=== PATIENT | male | born 1955 | race Caucasian/White ===

== ENCOUNTER 2022-04-25 14:02 | Inpatient (IN) | payer MEDICARE, OTHER, SELFPAY ==
--- NOTE | ~2022-04-25 | XR_ITS ---
EXAMINATION: XR hand LT min 3V DATE: 04/25/2022 14:33 INDICATION: Left hand injury and swelling and erythema. TECHNIQUE: 3 views of left hand were obtained. COMPARISON: None. FINDINGS: Bone alignment is normal. No fracture. There is mild osteoarthritis of triscaphe joint, fir st carpometacarpal joint, first-third metacarpophalangeal joints, first interphalangeal joint, and se cond and third distal interphalangeal joints. IMPRESSION: 1. Mild polyarticular osteoarthritis. Reviewed, dictated and finalized at location A.
[2022-04-25 14:13] VITALS: BP 144/76; PULSE 104; RESP 18; TEMP 36.8; O2SAT 94
[2022-04-25 15:08] VITALS: BP 141/86; PULSE 99; RESP 18; TEMP 37.2; O2SAT 94
[2022-04-25 15:44] LABS: Basophils Absolute Auto 0.1 K/mm3 (0.0-0.1); Basophils Percent Auto 0.4 % (0.2-1.2); Eosinophils Percent Auto 0.2 % (0-4.4); Hemoglobin 15.1 g/dL (14.0-18.0); Immature Granulocyte Absolute 0.08 K/mm3 (0.00-0.031); Immature Granulocyte Percent A 0.6 % (0-0.5); Lymphocytes Percent Auto 6.1 % (18.3-44.2); Mean Corpuscular HGB Conc 35.1 g/dl (32-36); Mean Corpuscular Hemoglobin 29.4 pg (26-34); Mean Corpuscular Volume 83.8 fl (80-100); Mean Platelet Volume 8.6 fl (7.4-10.4); Monocytes Absolute Auto 0.9 K/mm3 (0.1-0.6); Monocytes Percent Auto 6.8 % (2.6-8.5); Neutrophils Absolute Auto 11.2 K/mm3 (1.3-6.7); Neutrophils Percent Auto 85.9 % (45.5-73.1); Platelet Count Result 120 k/mm3 (150-375); Red Blood Count 5.13 M/mm3 (4.6-6.20); Red Cell Distribution Width 14.6 % (11.5-14.5)
[2022-04-25 15:54] LABS: Anion Gap 8 mmol/L (8-16); Blood Urea Nitrogen 12 mg/dL (9-20); Calcium 9.3 mg/dL (8.4-10.2); Carbon Dioxide 32 mmol/L (22-30); Chloride 90 mmol/L (98-107); Estimated CRCL calculation 110 ml/min; Estimated Glomerular Filt Rate > 60; Glucose 206 mg/dL (65-110); Lactic Acid Reflex 1.5 mmol/L (0.7-2.0); Potassium 3.4 mmol/L (3.4-5.0); Sodium 130 mmol/L (137-145)
--- NOTE | 2022-04-25 16:12 | ED.SKABFB ---
HPI - Skin/Abscess/Foreign Bdy General Chief complaint: Skin/Abscess/Foreign Body Stated complaint: finger injury, infected Time Seen by Provider: 04/25/22 15:04 History of Present Illness HPI narrative: Patient is a 66-year-old male who presents ER with left middle finger infection. Patient reports that 4 days ago he was hammering a nail when he struck his third digit at the DIP. He developed a bruise over the area. The next day it became more sore and he went to a urgent care. He was prescribed mupirocin ointment for possible development of infection. Since then his entire fingers blistered up. He has developed redness over the dorsum of his hand and streaking up towards his elbow. He has been having subjective fevers and chills. No palmar pain. There is erythema of the digit moving into the MCP area of the palm. Patient has had no drainage but can feel fluid within the blister. Related Data Home Medications Medication Instructions Recorded Confirmed albuterol sulfate 90 mcg/actuation inhalation 10/07/19 03/06/21 aerosol inhaler (ProAir HFA) balsalazide 750 mg capsule 750 mg PO 10/07/19 03/06/21 (Colazal) budesonide-formoterol HFA 160 inhalation 10/07/19 03/06/21 mcg-4.5 mcg/actuation aerosol inhaler (Symbicort) citalopram 40 mg tablet (Celexa) 40 mg 10/07/19 03/06/21 docusate sodium 100 mg capsule PO 10/07/19 03/06/21 ergocalciferol (vitamin D2) 1,250 50,000 unit 10/07/19 03/06/21 mcg (50,000 unit) capsule hydrocodone 10 mg-acetaminophen tablet 10/07/19 03/06/21 325 mg tablet metformin 500 mg tablet,extended mg PO 10/07/19 03/06/21 release 24 hr (Glucophage XR) metolazone 5 mg tablet 5 mg 10/07/19 03/06/21 omega-3s 300 uq-zzz-kkl-other cap PO 10/07/19 03/06/21 [id number] oil 1,000 mg capsule ([place]-3 Fish Oil) potassium chloride 20 mEq meq PO 10/07/19 03/06/21 tablet,extended release(part/cryst) (Klor-Con M) rosuvastatin 10 mg tablet (Crestor) 10 mg 10/07/19 03/06/21 tamsulosin 0.4 mg capsule (Flomax) mg PO 10/07/19 03/06/21 tiotropium bromide 2.5 inhalation 10/07/19 03/06/21 mcg/actuation mist for inhalation (Spiriva Respimat) potassium chloride 20 mEq 20 meq PO TID 12/06/19 03/06/21 tablet,extended release sildenafil 100 mg tablet 100 mg PO DAILY PRN 12/06/19 03/06/21 Allergies Allergy/AdvReac Type Severity Reaction Status Date / Time No Known Allergies Allergy Unknown Verified 03/06/21 11:32 Review of Systems Review of Systems: All systems reviewed & are unremarkable except as noted in HPI and below Constitutional: Constitutional: Reports chills, Reports fever(s) and Denies weakness Gastrointestinal: Gastrointestinal: Denies abdominal pain, Denies nausea and Denies vomiting Musculoskeletal: Musculoskeletal: Denies myalgias, Reports arthralgias and Reports joint swelling Integumentary/Breasts: Skin/Breast: Reports erythema and Denies rash Comments: Bullae of left middle finger. Neurologic: Denies focal weakness and Denies numbness PMFSH Past Medical History Medical History (Updated 04/25/22 @ 16:33 by Jasper Gant MD) Arthritis BPH (benign prostatic hyperplasia) Brain tumor Chronic back pain Depression Dyslipidemia Emphysema of lung GERD (gastroesophageal reflux disease) Hemorrhoids Hypercholesteremia Hypertension Non-insulin dependent type 2 diabetes mellitus Sleep apnea Surgical History Surgical History H/O inguinal hernia repair History of orthopedic surgery Right knee x2, left ankle x3 Family History Family History Sibling Family history of emphysema Family history of heart disease in male family member before age 55 Family history of obesity Family history of sleep apnea Mother Family history of obesity Other Diabetes mellitus Social History Social History
[2022-04-25 17:59] VITALS: BP 147/81; PULSE 78; RESP 16; O2SAT 98
--- NOTE | 2022-04-25 18:29 | ADMGEN ---
This patient, Celestino Rivas, was admitted to [address] [place] [address] Room 300-01. Patient/family oriented to hospital policies and general routines including ID bracelet, bed and alarms, visiting hours, pain management, procedures, bathroom and other care routines, personal items, smoking policy, room service/diet, and visiting hours. Information on how to activate the Rapid Response Team has been discussed. Patient/Family are encouraged to report perceived risks to care and to ask questions if they do not understand what they are told or what they should do.
[2022-04-25 18:41] VITALS: BMI 32.3
--- NOTE | 2022-04-25 19:30 | PM.IMHP ---
H&P: HPI History of Present Illness Date/Time: 04/25/22 19:30 Chief Complaint: Left middle finger wound. Narrative: This is a very pleasant 66-year-old male with diabetes, hypertension, dyslipidemia, and other comorbidities who presented to the emergency department from home for evaluation of a left middle finger wound. Four days ago he was trying to hammer a nail into a piece of wood when he missed the nail and struck his left middle finger over the DIP joint. Almost immediately he developed swelling and formed a blood blister within hours. The following day the blister had extended and finger was much more sore. He was seen at urgent care at which time he was given a tetanus shot and he was told to clean the wound and apply mupirocin ointment. Despite taking meticulous care of the wound, the blistering has spread to encompass nearly the entire dorsal aspect of that finger and it has been draining small amounts of pus and serosanguineous fluid. He has now developed swelling and redness to the dorsum of the hand which is now streaking up the arm and he came in today for evaluation. He is now status post I&D in the emergency department and wound culture has been obtained. The patient is now being admitted for IV antibiotics. He reports a pretty constant, throbbing pain in that finger, worse when trying to bend that finger or those adjacent. He has not had a fever but he has just not been feeling well the last couple of days with generalized malaise, fatigue, and nausea. No numbness or tingling of the finger. No known history of multidrug resistant organisms. Review of Systems Review of Systems: Twelve systems were reviewed. He has lost quite a bit of weight since changing his diet and starting an exercise program at the [facility]. He believes his diabetes is well controlled. No blurry vision, polydipsia, or polyuria. He has not had a fever. Some nausea but no vomiting. Appetite has been a bit diminished. Except as documented, all other systems were reviewed and are negative. [facility] Past Medical History Medical History (Updated 04/25/22 @ 23:42 by Leah North PA-C) Arthritis Benign prostatic hyperplasia Chronic back pain Depression Dyslipidemia Emphysema of lung Gastroesophageal reflux disease Hemorrhoids Hypercholesteremia Hypertension Non-insulin dependent type 2 diabetes mellitus Obstructive sleep apnea on CPAP Sleep apnea Surgical History Surgical History (Updated 04/25/22 @ 23:38 by Leah North PA-C) History of inguinal hernia repair History of orthopedic surgery Right knee x2, left ankle x3 Family History Family History Sibling Family history of emphysema Family history of heart disease in male family member before age 55 Family history of obesity Family history of sleep apnea Mother Family history of obesity Other Diabetes mellitus Social History Social History (Updated 04/25/22 @ 23:42 by Leah North PA-C) Social History: Surrogate decision maker: Jarett Rivera, mother. Code status: Full code. Smoking packs per day: 1 Smoking cigarettes per day: 20.0 Years smoked: 10 Smoking pack-years: 10.00 Smoking status: Former smoker Tobacco type: cigarettes Second hand tobacco smoke exposure: No Smoking end date: 11/17/05 Alcohol intake: never Substance use: current Other substance usage details: Medical marijuana. Living arrangements: alone Occupation/Education: retired Spiritual care concerns: No Meds Home Medications and Allergies Home Medications Medication Instructions Recorded Confirmed Type albuterol sulfate 90 mcg/actuation inhalation 10/07/19 03/06/21 History aerosol inhaler (ProAir HFA) balsalazide 750 mg capsule 750 mg PO 10/07/19 03/06/21 History (Colazal) budesonide-formoterol HFA 160 inhalation 10/07/19 03/06/21 History mcg-4.5 mcg/actuation aerosol inhaler (Symbico
[2022-04-25] MEDS: HYDROcodone/acetaminophen (*CRX) 5-325 MG TABLET 1 TAB PO (21:37)
[2022-04-25 21:40] VITALS: BP 125/68; PULSE 91; RESP 18; TEMP 37; O2SAT 96
[2022-04-26] MEDS: SODIUM CHLORIDE 0.9% IV 1,000 ML 100 ML IV CONT (00:27)
[2022-04-26 01:45] VITALS: PULSE 83; RESP 19; O2SAT 95
[2022-04-26 05:45] VITALS: BP 134/75; PULSE 73; RESP 20; TEMP 37; O2SAT 95
--- NOTE | 2022-04-26 06:29 | PC.NURSE ---
Place call to DR Trimble exchange for consult, waiting on return call.
[2022-04-26 07:59] LABS: Glucose Point of Care 271 mg/dl (65-105)
[2022-04-26] MEDS: MORPHINE SULFATE (*CRX) 2 MG/ML INJ IV PUSH ×2 (08:47→17:26)
[2022-04-26] MEDS: INSULIN ASPART (*BKC) 100 UNITS/ML SUB-Q (08:49)
[2022-04-26 09:45] LABS: Hematocrit 39.5 % (42.0-52.0); Hemoglobin 13.9 g/dL (14.0-18.0); Mean Corpuscular HGB Conc 35.2 g/dl (32-36); Mean Corpuscular Hemoglobin 29.4 pg (26-34); Mean Corpuscular Volume 83.7 fl (80-100); Mean Platelet Volume 8.9 fl (7.4-10.4); Platelet Count Result 110 k/mm3 (150-375); Red Blood Count 4.72 M/mm3 (4.6-6.20); Red Cell Distribution Width 14.6 % (11.5-14.5); White Blood Count 8.5 K/mm3 (4.5-10.0)
[2022-04-26 10:02] LABS: Anion Gap 9 mmol/L (8-16); Blood Urea Nitrogen 12 mg/dL (9-20); Calcium 8.2 mg/dL (8.4-10.2); Carbon Dioxide 30 mmol/L (22-30); Chloride 90 mmol/L (98-107); Estimated CRCL calculation 182 ml/min; Estimated Glomerular Filt Rate > 60; Glucose 229 mg/dL (65-110); Magnesium 1.5 mg/dL (1.6-2.3); Sodium 129 mmol/L (137-145)
[2022-04-26 10:09] LABS: CRP 14.7 mg/dL (<1.0)
[2022-04-26 10:26] LABS: Potassium 2.8 mmol/L (3.4-5.0)
[2022-04-26 11:18] LABS: Hemoglobin A1C 8.2 % (<5.7)
[2022-04-26] MEDS: MAGNESIUM SULFATE 3GM/D5W100ML 3 GM/100 ML BAG IVPB (11:20)
[2022-04-26 11:49] LABS: Glucose Point of Care 180 mg/dl (65-105)
--- NOTE | 2022-04-26 12:58 | WPDCN ---
Assessment and Plan Assessment and plan (1) Non-insulin dependent type 2 diabetes mellitus: Code(s): E11.9 - Type 2 diabetes mellitus without complications Status: Acute Assessment and Plan: Care by others. (2) Cellulitis of left middle finger: Code(s): L03.012 - Cellulitis of left finger Status: Acute Assessment and Plan: Will debride purulent bulla at the bedside to promote topical care with Silver gel. Continue Imipenem and Vanc pending cx final. HPI Data of Consult Date/Time: 04/26/22 12:58 Requesting Physician: Randee Longo PA-C Primary Care Provider: Evonne Capps MD Consult Narrative Narrative: Celestino Rivas is a 66 year old male admitted with lymphangitis of L upper extremity related to cellulitis from a hammer blow to his left middle finger 5 days ago. On admission there was elevated WBC, normal x-ray, lymphangitis. A purulent draining bulla has developed. Cx prilim. shows G pos. cocci. PMFSH Past Medical History Medical History (Updated 04/25/22 @ 23:42 by Leah North PA-C) Arthritis Benign prostatic hyperplasia Chronic back pain Depression Dyslipidemia Emphysema of lung Gastroesophageal reflux disease Hemorrhoids Hypercholesteremia Hypertension Non-insulin dependent type 2 diabetes mellitus Obstructive sleep apnea on CPAP Sleep apnea Surgical History Surgical History (Updated 04/25/22 @ 23:38 by Leah North PA-C) History of inguinal hernia repair History of orthopedic surgery Right knee x2, left ankle x3 Family History Family History Sibling Family history of emphysema Family history of heart disease in male family member before age 55 Family history of obesity Family history of sleep apnea Mother Family history of obesity Other Diabetes mellitus Social History Social History (Updated 04/25/22 @ 23:42 by Leah North PA-C) Social History: Surrogate decision maker: Jarett Rivera, mother. Code status: Full code. Smoking packs per day: 1 Smoking cigarettes per day: 20.0 Years smoked: 10 Smoking pack-years: 10.00 Smoking status: Former smoker Tobacco type: cigarettes Second hand tobacco smoke exposure: No Smoking end date: 11/17/05 Alcohol intake: never Substance use: current Other substance usage details: Medical marijuana. Living arrangements: alone Occupation/Education: retired Spiritual care concerns: No Meds Home Medications and Allergies Home Medications Medication Instructions Recorded Confirmed Type albuterol sulfate 90 mcg/actuation 2 puff inhalation DAILY 10/07/19 04/26/22 History aerosol inhaler (ProAir HFA) balsalazide 750 mg capsule 750 mg PO BID 10/07/19 04/26/22 History (Colazal) budesonide-formoterol HFA 160 2 puff inhalation BID 10/07/19 04/26/22 History mcg-4.5 mcg/actuation aerosol inhaler (Symbicort) citalopram 40 mg tablet (Celexa) 40 mg HS 10/07/19 04/26/22 History docusate sodium 100 mg capsule 100 mg PO HS 10/07/19 04/26/22 History ergocalciferol (vitamin D2) 1,250 50,000 unit DAILY 10/07/19 04/26/22 History mcg (50,000 unit) capsule hydrocodone 10 mg-acetaminophen 10 - 325 tablet QID PRN Pain 10/07/19 04/26/22 History 325 mg tablet metolazone 5 mg tablet 5 mg DAILY 10/07/19 04/26/22 History omega-3s 300 tn-atu-bwz-other 300 - 1,000 cap PO DAILY 10/07/19 04/26/22 History [id number] oil 1,000 mg capsule ([place]-3 Fish Oil) potassium chloride 20 mEq 20 meq PO BID 10/07/19 04/26/22 History tablet,extended release(part/cryst) (Klor-Con M) rosuvastatin 10 mg tablet (Crestor) 10 mg DAILY 10/07/19 04/26/22 History tamsulosin 0.4 mg capsule (Flomax) 0.4 mg PO DAILY 10/07/19 04/26/22 History tiotropium bromide 2.5 2.5 mcg inhalation DAILY 10/07/19 04/26/22 History mcg/actuation mist for inhalation (Spiriva Respimat) potassium
--- NOTE | 2022-04-26 13:08 | W.PM.PROC2 ---
Procedure Note - Detailed Date of Procedure 04/26/22 Pre-op Diagnosis Finger Infection Post-op Diagnosis Same Procedure Performed scissor removal of 5 cm septic bulla of left middle finger at bedside. Surgeon Monroe Jimenez MD Anesthesia None Findings macerating superficial cellulitis of left dorsal middle finger. Description of Procedure Pt comfortable as bulla removed by scissors the length of the dorsal left middle finger draining purulence. Dressed with Betadine and gauze. Urine Output 310
[2022-04-26] MEDS: POTASSIUM CHLORIDE 20 MEQ TABLET PO (13:36)
[2022-04-26] MEDS: POTASSIUM CHLORIDE INJ 40 MEQ in SODIUM CHLORIDE 0.9% IV 500 ML 130 MEQ IVPB (13:37)
[2022-04-26 14:00] VITALS: BP 125/80; PULSE 74; RESP 16; TEMP 36.5; O2SAT 97
[2022-04-26 14:04] LABS: Sodium 129 mmol/L (137-145)
--- NOTE | 2022-04-26 14:47 | PM.IMPN ---
Progress Note: A&P Assessment and Plan (1) Cellulitis of left middle finger: Code(s): L03.012 - Cellulitis of left finger Status: Acute Assessment and Plan: Patient presented with left middle finger pain following a hammer injury to his left D IP S/p I&D performed in the emergency department Wound culture is pending. Preliminary results revealed Gram-positive cocci in chains Continue vancomycin and Primaxin Appreciate Plastic surgery consultation He is s/p says the removal of purulent bulla performed by Dr. Jimenez today at the bedside Continue with local wound care Analgesics available as needed No evidence of systemic infection. No fevers. Leukocytosis has resolved. (2) Abscess of left middle finger: Code(s): L02.512 - Cutaneous abscess of left hand Status: Acute Assessment and Plan: See above (3) Cellulitis of left hand: Code(s): L03.114 - Cellulitis of left upper limb Status: Acute Assessment and Plan: Patient with surrounding cellulitis of the dorsum of the left hand and wrist. Continue IV antibiotics Monitor the area closely (4) Non-insulin dependent type 2 diabetes mellitus: Code(s): E11.9 - Type 2 diabetes mellitus without complications Status: Acute Assessment and Plan: A1c is 8.2. Blood sugars have been slightly elevated this admission Continue Accu-Cheks, sliding scale insulin, hypoglycemic protocol Monitor glucose trends adjust insulin regimen as needed (5) Hypertension: Code(s): I10 - Essential (primary) hypertension Status: Acute Assessment and Plan: Blood pressures reviewed and have been stable. Last BP 134/75 Hold home metolazone given hyponatremia Monitor blood pressure trends (6) Mild dehydration: Code(s): E86.0 - Dehydration Status: Acute Assessment and Plan: Resolved Patient has been adequately rehydrated is tolerating p.o. intake (7) Obstructive sleep apnea on CPAP: Code(s): G47.33 - Obstructive sleep apnea (adult) (pediatric); Z99.89 - Dependence on other enabling machines and devices Status: Acute Assessment and Plan: Continue home CPAP (8) Electrolyte abnormality: Code(s): E87.8 - Other disorders of electrolyte and fluid balance, not elsewhere classified Status: Acute Assessment and Plan: Hypokalemia: Potassium 2.8 this morning. Replace potassium and continue to monitor closely Hypomagnesemia: Magnesium 1.5. Continue with magnesium supplementation and repeat magnesium tomorrow Hyponatremia: Sodium 129. Etiology for this unclear, may be SIADH due to pain. Recheck this afternoon with sodium unchanged 129. Will evaluate urine electrolytes Subjective Date/time seen: 04/26/22 14:47 Interval history: Date of service: 04/26/2022 Celestino Rivas is a 66-year-old with a history of hypertension type 2 diabetes mellitus LYNN on CPAP back pain, and dyslipidemia is seen in follow-up for left middle finger infection. He is feeling pretty well at this time. He does endorse pain in his left middle finger that he states is a ?150 out of 10? He tolerated scissor removal of bulla at the bedside today. He states the dorsum of his hand and wrist feels warm and slightly tender when she touches it. He denies streaking up the arm. He denies fevers or chills, no nausea or vomiting. He states he got nauseous this morning while receiving IV medications but has not had any episodes of emesis in his nausea has resolved. He denies diarrhea. He complains of chronic back and neck pain. He denies shortness breath, cough, chest pain. Review of Systems Review of Systems: All systems reviewed & are unremarkable except as noted in HPI and below Exam Narrative: General: Well-nourished, well-appearing 66-year-old male, sitting up in bed, comfortable, NARD Neuro: awake, alert and oriented x4, speech clear, no
[2022-04-26 16:45] LABS: Glucose Point of Care 156 mg/dl (65-105)
[2022-04-26] MEDS: POTASSIUM CHLORIDE 20 MEQ TABLET.ER PO (17:26)
[2022-04-26 18:02] LABS: Sodium 130 mmol/L (137-145)
[2022-04-26 20:00] VITALS: PULSE 82; RESP 21; O2SAT 96
[2022-04-26] MEDS: DOCUSATE SODIUM 100 MG CAPSULE PO (20:46)
[2022-04-26] MEDS: CITALOPRAM HYDROBROMIDE 20 MG TABLET 40 MG PO (20:46)
[2022-04-26] MEDS: HYDROcodone/acetaminophen (*CRX) 5-325 MG TABLET 1 TAB PO (20:46)
[2022-04-26 21:43] VITALS: BP 119/69; PULSE 80; RESP 20; TEMP 37.1; O2SAT 97
[2022-04-26 21:51] LABS: Glucose Point of Care 207 mg/dl (65-105)
[2022-04-26] MEDS: WATER FOR IRRIGATION, STERILE 1,000 ML BOTTLE 1000 ML (22:00)
[2022-04-26 23:30] VITALS: PULSE 82; RESP 21; O2SAT 96
[2022-04-26] MEDS: FLUTICASONE/SALMETEROL 115-21 MCG INHALER 1 PUFF 2 PUFF INHALATION (23:30)
[2022-04-27] VITALS (7 sets, daily range): BP systolic 122–135; BP diastolic 58–79; PULSE 62–88; RESP 15–20; TEMP 36.1–36.8; O2SAT 94–98
[2022-04-27 01:19] LABS: Creatinine Urine 137.8 mg/dL
[2022-04-27 01:34] LABS: Sodium Urine Random 70 meq/L
[2022-04-27 06:34] LABS: Hematocrit 37.7 % (42.0-52.0); Hemoglobin 13.5 g/dL (14.0-18.0); Immature Platelet Fraction Pct 2.4 % (0.9-11.2); Mean Corpuscular HGB Conc 35.8 g/dl (32-36); Mean Corpuscular Hemoglobin 29.8 pg (26-34); Mean Corpuscular Volume 83.2 fl (80-100); Mean Platelet Volume 8.8 fl (7.4-10.4); Platelet Count Result 127 k/mm3 (150-375); Red Blood Count 4.53 M/mm3 (4.6-6.20); Red Cell Distribution Width 14.6 % (11.5-14.5); White Blood Count 5.5 K/mm3 (4.5-10.0)
[2022-04-27 06:46] LABS: Anion Gap 5 mmol/L (8-16); Blood Urea Nitrogen 12 mg/dL (9-20); CRP 5.6 mg/dL (<1.0); Carbon Dioxide 30 mmol/L (22-30); Chloride 98 mmol/L (98-107); Estimated CRCL calculation 149 ml/min; Estimated Glomerular Filt Rate > 60; Glucose 176 mg/dL (65-110); Magnesium 1.9 mg/dL (1.6-2.3); Sodium 133 mmol/L (137-145)
[2022-04-27 06:49] LABS: Vancomycin Trough 7.7 ug/mL (10.0-20.0)
[2022-04-27 07:35] LABS: Glucose Point of Care 208 mg/dl (65-105)
[2022-04-27] MEDS: INSULIN ASPART (*BKC) 100 UNITS/ML SUB-Q ×4 (08:30→16:54)
[2022-04-27] MEDS: POTASSIUM CHLORIDE 20 MEQ TABLET.ER PO ×2 (08:34→16:53)
[2022-04-27] MEDS: SODIUM CHLORIDE 0.9% IV 1,000 ML 100 ML IV CONT (08:35)
[2022-04-27] MEDS: HYDROcodone/acetaminophen (*CRX) 5-325 MG TABLET 1 TAB PO (08:45)
[2022-04-27] MEDS: ALBUTEROL SULFATE (*SP) AEROSOL 1 PUFF 2 PUFF INHALATION (08:53)
[2022-04-27] MEDS: FLUTICASONE/SALMETEROL 115-21 MCG INHALER 1 PUFF 2 PUFF INHALATION ×2 (08:53→19:32)
--- NOTE | 2022-04-27 10:12 | WPDPN ---
Progress Note: A&P Assessment and Plan (1) Cellulitis of left hand: Code(s): L03.114 - Cellulitis of left upper limb Status: Acute Assessment and Plan: Infection markedly improved. Culture specifics pending on the G pos cocci. (2) Non-insulin dependent type 2 diabetes mellitus: Code(s): E11.9 - Type 2 diabetes mellitus without complications Status: Acute Assessment and Plan: Care by others. (3) Obesity: Code(s): E66.9 - Obesity, unspecified Status: Acute Assessment and Plan: Care by others. Plan Can be discharged on Silver gel as ordered, and appropriate oral antibiotics when cleared by Hospitalists. F/U with Dr. Jimenez in a week on Friday. Subjective Date/time seen: 04/27/22 10:12 Hand feels better and is less red . Finger moves pretty well. Exam Narrative: Dressing changed. Lymphangitis is resolved. No purulence. Extends well, total active flexion about 50%. Objective Data Vital Signs Vital Signs: Vital Signs - 24 hr 04/26/22 14:00 04/26/22 21:43 04/26/22 23:30 Temperature 97.7 F 98.7 F Pulse Rate 74 80 82 Respiratory Rate 16 20 21 H Blood Pressure 125/80 119/69 Pulse Oximetry 97 97 96 Oxygen Delivery CPAP Fraction of Inspired Oxygen 04/26/22 23:30 04/26/22 20:00 04/27/22 03:39 Temperature Pulse Rate 82 88 Respiratory Rate 21 H 15 Blood Pressure Pulse Oximetry 96 96 94 Oxygen Delivery CPAP CPAP CPAP Fraction of Inspired Oxygen 21 21 04/27/22 05:21 04/27/22 08:55 Temperature 98.3 F Pulse Rate 68 Respiratory Rate 20 Blood Pressure 122/64 Pulse Oximetry 98 97 Oxygen Delivery Room Air Fraction of Inspired Oxygen Intake/Output Intake/Output: Intake & Output 04/24/22 04/25/22 04/26/22 04/27/22 23:59 23:59 23:59 23:59 Intake Total 600 4300 810 Output Total 1695 700 Balance 600 2605 110 Meds/Results Medications: Active Medications Generic Name Dose Route Start Last Admin Trade Name Freq PRN Reason Stop Dose Admin Acetaminophen 650 mg 04/25/22 16:12 Acetaminophen 325 Mg Tablet PO Q4H PRN Mild Pain (1-3) or Fever Hydrocodone Bitart/Acetaminophen 1 tab 04/25/22 16:12 04/27/22 08:45 Hydrocodone/Acetaminophen (*Crx) 5-325 Mg Tablet PO 1 tab Q4H PRN Administration Pain Rated 4-6 Albuterol 2 puff 04/27/22 09:00 04/27/22 08:53 Albuterol Sulfate (*Sp) Aerosol 1 Puff INHALATION 2 puff DAILY NITESH Administration Citalopram Hydrobromide 40 mg 04/26/22 21:00 04/26/22 20:46 Citalopram Hydrobromide 20 Mg Tablet PO 40 mg HS NITESH Administration Dextrose 12.5 gm 04/25/22 23:46 Dextrose 50% 25 Gm/50 Ml Syringe IV PUSH PRN PRN Hypoglycemia Protocol Docusate Sodium 100 mg 04/26/22 21:00 04/26/22 20:46 Docusate Sodium 100 Mg Capsule PO 100 mg HS NITESH Administration Glucagon 1 mg 04/25/22 23:46 Glucagon For Inj 1 Mg Vial IM PRN PRN Hypoglycemia Protocol Glucose 15 gm 04/25/22 23:46 Glucose Oral Gel 15 Gm Of Glucse In 37.5 Gm Tube PO PRN PRN Hypoglycemia Protocol Imipenem/Cilastatin Sodium 500 mg in 100 mls @ 300 mls/hr 04/26/22 00:00 04/27/22 05:30 Primaxin 500 Mg/Ns 100 Ml IVPB Infused Q6H NITESH Infusion Dextrose 1,000 mls @ 100 mls/hr 04/25/22 23:46 Dextrose 5% 1,000 Ml IVPB PRN PRN Hypoglycemia Protocol Vancomycin HCl 1,500 mg in 500 mls @ 333.333 mls/hr 04/27/22 17:00 Vancomycin 1,500 Mg/D5w 500 Ml IVPB Q8H NITESH Magnesium Sulfate/Dextrose 1 gm in 100 mls @ 100 mls/hr 04/27/22 09:49 Magnesium Sulf 1 Gm/D5w 100 Ml IVPB 04/27/22 10:48 ONCE ONE Insulin Aspart 2 - 5 units 04/26/22 08:00 04/27/22 08:30 Insulin Aspart (*Bkc) 100 Units/Ml SUB-Q 2 units TIDWM NITESH Administration Protocol Morphine Sulfate 2 mg 04/25/22 23:46 04/26/22 17:26 Morphine Sulfate (*Crx) 2 Mg/Ml Inj IV PUSH 2 mg Q4H PRN Adminis
[2022-04-27 11:13] LABS: Glucose Point of Care 277 mg/dl (65-105)
[2022-04-27] MEDS: MAGNESIUM SULF 1 GM/D5W 100 ML 1 GM/100 ML BAG IVPB (12:20)
[2022-04-27] MEDS: POTASSIUM CHLORIDE 20 MEQ TABLET PO (12:21)
[2022-04-27] MEDS: SILVERGEL (ELTA) 45 ML 1 APPLIC TOPICAL (12:21)
--- NOTE | 2022-04-27 14:33 | PM.IMPN ---
Progress Note: A&P Assessment and Plan (1) Cellulitis of left middle finger: Code(s): L03.012 - Cellulitis of left finger Status: Acute Assessment and Plan: Patient presented with left middle finger pain following a hammer injury to his left DIP S/p I&D performed in the emergency department Wound culture is pending. Preliminary results revealed Gram-positive cocci in chains Continue vancomycin and Primaxin Appreciate Plastic surgery consultation He is s/p scissor removal of purulent bulla performed by Dr. Jimenez 04/26 at the bedside Continue with local wound care Analgesics available as needed No evidence of systemic infection. No fevers. Leukocytosis has resolved. (2) Abscess of left middle finger: Code(s): L02.512 - Cutaneous abscess of left hand Status: Acute Assessment and Plan: See above (3) Cellulitis of left hand: Code(s): L03.114 - Cellulitis of left upper limb Status: Acute Assessment and Plan: Patient with surrounding cellulitis of the dorsum of the left hand and wrist. Continue IV antibiotics Monitor the area closely (4) Non-insulin dependent type 2 diabetes mellitus: Code(s): E11.9 - Type 2 diabetes mellitus without complications Status: Acute Assessment and Plan: A1c is 8.2. Blood sugars have been elevated this admission Continue Accu-Cheks, moderate dose sliding scale insulin, hypoglycemic protocol Add novolog 5 units scheduled with meals Monitor glucose trends and adjust insulin regimen as needed (5) Hypertension: Code(s): I10 - Essential (primary) hypertension Status: Acute Assessment and Plan: Blood pressures reviewed and have been stable. Last BP 126/58 Hold home metolazone given hyponatremia Monitor blood pressure trends (6) Obstructive sleep apnea on CPAP: Code(s): G47.33 - Obstructive sleep apnea (adult) (pediatric); Z99.89 - Dependence on other enabling machines and devices Status: Acute Assessment and Plan: Continue home CPAP (7) Electrolyte abnormality: Code(s): E87.8 - Other disorders of electrolyte and fluid balance, not elsewhere classified Status: Acute Assessment and Plan: Hypokalemia: Potassium 3.0 this morning. Replace potassium and continue to monitor closely. Continue scheduled KCl 20 mEq BID with meals Hypomagnesemia: Magnesium 1.9. 1 g IV Mag sulfate. Repeat magnesium tomorrow Hyponatremia: Urine sodium is 70. Likely SIADH due to pain. Improved. Sodium 133 today. Subjective Date/time seen: 04/27/22 14:33 Interval history: Date of service: 04/27/2022 Celestino Rivas is a 66-year-old with a history of hypertension, type 2 diabetes mellitus, LYNN on CPAP, chronic back pain, and dyslipidemia who is seen in follow-up for left middle finger infection. He feels well today. He reports 6/10 pain in the finger. He denies any pain in the hand or wrist. He has not noticed any drainage. He states he is able to move hand and fingers a bit more easily today. He denies fevers, chills, nausea, vomiting. No dizziness, lightheadedness, weakness, shortness breath, cough, or chest pain. He is ambulating without difficulty. He had a formed bowel movement today. Denies diarrhea. Denies urinary symptoms. He does complain of increased back pain because he has not been getting his typical dose of narcotic pain medication. Review of Systems Review of Systems: All systems reviewed & are unremarkable except as noted in HPI and below Exam Narrative: General: Well-nourished, well-appearing 66-year-old male, sitting up in bed, comfortable, NARD Neuro: awake, alert and oriented x4, speech clear, no focal neuro deficits noted HEENMT: normocephalic, atraumatic, EOMI, sclerae anicteric Respiratory: clear to auscultation bilaterally, nonlabored breathing Cardio: regular rate, regular rhythm with S1-S2 Abdomen: Protuber
[2022-04-27 15:55] LABS: Glucose Point of Care 262 mg/dl (65-105)
[2022-04-27] MEDS: HYDROcodone/acetaminophen (*CRX) 10-325 MG TABLET 1 TAB PO ×2 (16:57→23:00)
[2022-04-27] MEDS: CITALOPRAM HYDROBROMIDE 20 MG TABLET 40 MG PO (21:05)
[2022-04-27] MEDS: DOCUSATE SODIUM 100 MG CAPSULE PO (21:05)
[2022-04-27 21:49] LABS: Glucose Point of Care 167 mg/dl (65-105)
[2022-04-28 02:00] VITALS: PULSE 80; RESP 20; O2SAT 96
[2022-04-28 06:00] VITALS: BP 133/76; PULSE 66; RESP 18; TEMP 36.2; O2SAT 97
[2022-04-28 06:51] LABS: Anion Gap 5 mmol/L (8-16); Blood Urea Nitrogen 10 mg/dL (9-20); CRP 2.5 mg/dL (<1.0); Calcium 8.4 mg/dL (8.4-10.2); Carbon Dioxide 31 mmol/L (22-30); Chloride 100 mmol/L (98-107); Estimated CRCL calculation 125 ml/min; Estimated Glomerular Filt Rate > 60; Glucose 173 mg/dL (65-110); Magnesium 2.2 mg/dL (1.6-2.3); Potassium 3.4 mmol/L (3.4-5.0); Sodium 136 mmol/L (137-145)
[2022-04-28] MEDS: FLUTICASONE/SALMETEROL 115-21 MCG INHALER 1 PUFF 2 PUFF INHALATION (07:45)
[2022-04-28] MEDS: ALBUTEROL SULFATE (*SP) AEROSOL 1 PUFF 2 PUFF INHALATION (07:45)
[2022-04-28 07:53] VITALS: O2SAT 94
[2022-04-28] MEDS: INSULIN ASPART (*BKC) 100 UNITS/ML SUB-Q ×3 (08:29→12:31)
[2022-04-28] MEDS: POTASSIUM CHLORIDE 20 MEQ TABLET.ER PO (08:31)
[2022-04-28 08:33] LABS: Glucose Point of Care 182 mg/dl (65-105)
[2022-04-28] MEDS: HYDROcodone/acetaminophen (*CRX) 10-325 MG TABLET 1 TAB PO (08:37)
[2022-04-28] MEDS: SILVERGEL (ELTA) 45 ML 1 APPLIC TOPICAL (08:49)
[2022-04-28 11:04] LABS: Glucose Point of Care 306 mg/dl (65-105)
--- NOTE | 2022-04-28 11:07 | P.DS_ITS ---
DS: Admitting Diagnosis Discharge Date 04/28/2022 Admitting Diagnosis Cellulitis of left finger DS: Discharge Diagnosis Discharge Diagnosis (1) Cellulitis of left middle finger: Code(s): L03.012 - Cellulitis of left finger Status: Acute Assessment and Plan: Patient presented with left middle finger pain following a hammer injury to his left DIP * I&D performed in the emergency department * Wound culture with heavy growth of group a Streptococcus. Routine susceptibility not performed, predictably susceptible to beta lactams * Seen in consultation by Plastic surgery * S/p scissor removal of purulent bulla performed by Dr. Jimenez 04/26 at the bedside * Received IV vancomycin and Primaxin during admission * Will continue with p.o. Keflex to complete a total of 10 days of antibiotic therapy * Continue with local wound care. Change dressing and apply silver gel daily * Follow-up with Dr. Jimenez in 1 week for further monitoring * No evidence of systemic infection. No fevers. Leukocytosis resolved. (2) Abscess of left middle finger: Code(s): L02.512 - Cutaneous abscess of left hand Status: Acute Assessment and Plan: See above (3) Cellulitis of left hand: Code(s): L03.114 - Cellulitis of left upper limb Status: Acute Assessment and Plan: Patient with surrounding cellulitis of the dorsum of the left hand and wrist. * Improved during admission * Continue p.o. antibiotics. See plan above. (4) Non-insulin dependent type 2 diabetes mellitus: Code(s): E11.9 - Type 2 diabetes mellitus without complications Status: Acute Assessment and Plan: A1c is 8.2. * Blood sugars were elevated during admission, likely related to infection * Managed with Accu-Cheks, moderate dose sliding scale insulin, hypoglycemic protocol, scheduled NovoLog with meals * Continue home regimen with metformin 500 mg b.i.d. * Instructed to monitor blood sugars at home with meals and at bedtime. Record for review by PCP (5) Hypertension: Code(s): I10 - Essential (primary) hypertension Status: Acute Assessment and Plan: Blood pressures reviewed and remained stable. * Metolazone held during admission given hyponatremia which resolved. Metolazone was resumed (6) Obstructive sleep apnea on CPAP: Code(s): G47.33 - Obstructive sleep apnea (adult) (pediatric); Z99.89 - Dependence on other enabling machines and devices Status: Acute Assessment and Plan: Continue home CPAP (7) Electrolyte abnormality: Code(s): E87.8 - Other disorders of electrolyte and fluid balance, not elsewhere cla ssified Status: Acute Assessment and Plan: * Hypokalemia: Resolved with supplementation. Continue home potassium supplement 20 mEq b.i.d. * Hypomagnesemia: Resolved with supplementation. 2.2 at time of discharge * Hyponatremia: Urine sodium is 70. Likely SIADH. Sodium levels improved. 136 time of discharge. DS: Summary Hospital Course Hospital Course: Date of admission: 04/25/2022 Date of discharge: 04/28/2022 Celestino Rivas is a 66-year-old male with a history of hypertension, type 2 diabetes mellitus, LYNN on CPAP, chronic back pain, and dyslipidemia who presented to the emergency department on 04/25/2022 with complaints of finger pain and concerns for infection. Four days prior he struck his left middle finger DIP with a hammer. He had been evaluated in urgent care and received a tetanus vaccine and mupirocin oi
--- NOTE | 2022-04-28 11:07 | PM.DS ---
DS: Admitting Diagnosis Discharge Date 04/28/2022 Admitting Diagnosis Cellulitis of left finger DS: Discharge Diagnosis Discharge Diagnosis (1) Cellulitis of left middle finger: Code(s): L03.012 - Cellulitis of left finger Status: Acute Assessment and Plan: Patient presented with left middle finger pain following a hammer injury to his left DIP I&D performed in the emergency department Wound culture with heavy growth of group a Streptococcus. Routine susceptibility not performed, predictably susceptible to beta lactams Seen in consultation by Plastic surgery S/p scissor removal of purulent bulla performed by Dr. Jimenez 04/26 at the bedside Received IV vancomycin and Primaxin during admission Will continue with p.o. Keflex to complete a total of 10 days of antibiotic therapy Continue with local wound care. Change dressing and apply silver gel daily Follow-up with Dr. Jimenez in 1 week for further monitoring No evidence of systemic infection. No fevers. Leukocytosis resolved. (2) Abscess of left middle finger: Code(s): L02.512 - Cutaneous abscess of left hand Status: Acute Assessment and Plan: See above (3) Cellulitis of left hand: Code(s): L03.114 - Cellulitis of left upper limb Status: Acute Assessment and Plan: Patient with surrounding cellulitis of the dorsum of the left hand and wrist. Improved during admission Continue p.o. antibiotics. See plan above. (4) Non-insulin dependent type 2 diabetes mellitus: Code(s): E11.9 - Type 2 diabetes mellitus without complications Status: Acute Assessment and Plan: A1c is 8.2. Blood sugars were elevated during admission, likely related to infection Managed with Accu-Cheks, moderate dose sliding scale insulin, hypoglycemic protocol, scheduled NovoLog with meals Continue home regimen with metformin 500 mg b.i.d. Instructed to monitor blood sugars at home with meals and at bedtime. Record for review by PCP (5) Hypertension: Code(s): I10 - Essential (primary) hypertension Status: Acute Assessment and Plan: Blood pressures reviewed and remained stable. Metolazone held during admission given hyponatremia which resolved. Metolazone was resumed (6) Obstructive sleep apnea on CPAP: Code(s): G47.33 - Obstructive sleep apnea (adult) (pediatric); Z99.89 - Dependence on other enabling machines and devices Status: Acute Assessment and Plan: Continue home CPAP (7) Electrolyte abnormality: Code(s): E87.8 - Other disorders of electrolyte and fluid balance, not elsewhere classified Status: Acute Assessment and Plan: Hypokalemia: Resolved with supplementation. Continue home potassium supplement 20 mEq b.i.d. Hypomagnesemia: Resolved with supplementation. 2.2 at time of discharge Hyponatremia: Urine sodium is 70. Likely SIADH. Sodium levels improved. 136 time of discharge. DS: Summary Hospital Course Hospital Course: Date of admission: 04/25/2022 Date of discharge: 04/28/2022 Celestino Rivas is a 66-year-old male with a history of hypertension, type 2 diabetes mellitus, LYNN on CPAP, chronic back pain, and dyslipidemia who presented to the emergency department on 04/25/2022 with complaints of finger pain and concerns for infection. Four days prior he struck his left middle finger DIP with a hammer. He had been evaluated in urgent care and received a tetanus vaccine and mupirocin ointment due to concerns for developing infection. He then developed a large blister over the DIP and redness over the dorsum of the hand up to the wrist and streaking up the arm. On presentation to the ED, he was afebrile, WBC [id number], additional laboratory workup unremarkable, hand x-ray showed mild polyarticular osteoarthritis. Underwent I and D in the ED and purulent fluid was expressed and sent for culture. He was admitted to the hospitalis
== END 2022-04-28 13:15 | disposition home or self-care (01) | DRG 603 ==
LOC: ANHED 16:33 → ANH3MEDSUR 17:21
PROVIDERS: Physician Assistant; Admitting Provider Internal Medicine; Emergency Provider Emergency Medicine; PCP Family Medicine; Visit Provider Physician Assistant
DX: L02.512 Cutaneous abscess of left hand (principal); L03.114 Cellulitis of left upper limb; E22.2 Syndrome of inappropriate secretion of antidiuretic hormone; B95.0 Streptococcus, group A, as the cause of diseases classified elsewhere; L03.012 Cellulitis of left finger; R23.8 Other skin changes; G47.33 Obstructive sleep apnea (adult) (pediatric); I10 Essential (primary) hypertension; E11.9 Type 2 diabetes mellitus without complications; E83.42 Hypomagnesemia; E87.6 Hypokalemia; E78.5 Hyperlipidemia, unspecified; G89.29 Other chronic pain; M54.9 Dorsalgia, unspecified; N40.0 Benign prostatic hyperplasia without lower urinary tract symptoms; M19.90 Unspecified osteoarthritis, unspecified site; K21.9 Gastro-esophageal reflux disease without esophagitis; J43.9 Emphysema, unspecified; Z87.891 Personal history of nicotine dependence; E86.0 Dehydration; E66.9 Obesity, unspecified; Z68.31 Body mass index [BMI] 31.0-31.9, adult
CPT/HCPCS: 26010; 36415; 73130; 80048; 80202; 82570; 82948; 83036; 83605; 83735; 84295; 84300; 85025; 85027; 85055; 86140; 87070; 87147; 87205; 94640; 96361; 96365; 96366; 96367; 96375; 99285; A9270; G0378; J0743; J1815; J2270; J3370; J3475; J3480; J7030; J7040